=== PATIENT | female | born 1995 | race Caucasian/White ===

== ENCOUNTER 2017-05-20 08:50 | Outpatient (CLI) ==
[2014-03-26 13:48] VITALS: BMI 28.8
--- NOTE | 2017-05-20 09:49 | US ---
EXAM: Bilateral breast ultrasound History: Bilateral breast pain. Technique: Multiple sonographic images through the bilateral breasts were obtained. Color duplex D oppler was used to interrogate vascular flow. Findings: No masses, cysts or fluid collection identified. Impression: No sonographic evidence of malignancy. Follow-up with ACR/ACS guidelines. BIRADS 1
== END 2017-05-20 08:51 | disposition home or self-care (01) ==
LOC: RAD 08:50
PROVIDERS: ATTEND Family Medicine
DX: N64.4 Mastodynia (principal)